=== PATIENT | female | born 1945 | race Caucasian/White ===

== ENCOUNTER 2024-08-02 16:43 | Inpatient (IN) | payer MEDICARE ==
[~2024-08-02] VITALS: Ht 157.5 cm; Wt 66.2 kg
[2024-08-02] MEDS ORDERED: MAGNESIUM HYDROXIDE 30 ML UDC PO PRN (17:30)
[2024-08-02] MEDS ORDERED: TEMAZEPAM 7.5 MG CAPSULE PO PRN ×2 (17:30)
[2024-08-02] MEDS ORDERED: ACETAMINOPHEN 325 MG TABLET PO PRN (17:30)
[2024-08-02] MEDS ORDERED: clonazePAM 0.5 MG TABLET PO PRN (17:30)
[2024-08-02] MEDS ORDERED: MAG HYDROX/AL HYDROX/SIMETH 30 ML UDC PO PRN (17:30)
[2024-08-02] MEDS ORDERED: DEXTROSE 50%-WATER 50 ML DISP.SYRIN IV PRN (18:00)
[2024-08-02 18:01] VITALS: BP 145/83; TEMP 99.1; O2SAT 98
[2024-08-02] MEDS: BLOOD SUGAR DIAGNOSTIC 1 EACH STRIP IN ONE (18:11)
[2024-08-02] MEDS: BLOOD SUGAR DIAGNOSTIC 1 EACH STRIP IN SCH (18:12)
[2024-08-02] MEDS: INSULIN REGULAR, HUMAN 100 UNIT/ML 3 ML VIAL SQ PRN (18:18)
[2024-08-02 20:00] VITALS: BP 128/60; TEMP 98.5; O2SAT 98
[2024-08-02] MEDS: INSULIN GLARGINE, 100 UNIT/ML CARTRIDGE SQ SCH (22:00)
[2024-08-03] MEDS: risperiDONE 0.25 MG TABLET PO SCH (09:00)
[2024-08-06] MEDS: diphenhydrAMINE HCL 50 MG/ML VIAL IM ONE (17:28)
[2024-08-06] MEDS: OLANZAPINE 10 MG VIAL IM ONE (17:29)
[2024-08-07] MEDS: OLANZAPINE 10 MG VIAL IM SCH (16:48)
[2024-08-09] MEDS ORDERED: OLANZAPINE 10 MG VIAL IM PRN (07:30)
[2024-08-11] MEDS: risperiDONE 1 MG TABLET PO SCH (21:14)
[2024-08-13] MEDS: clonazePAM 0.5 MG TABLET PO PRN (12:51)
[2024-08-13] MEDS: risperiDONE 1 MG TABLET PO SCH (21:12)
[2024-08-15] MEDS: risperiDONE 1 MG TABLET PO SCH (21:04)
== END 2024-08-22 14:00 | disposition home or self-care (01) | DRG 885 ==
LOC: GPS 16:43
PROVIDERS: ADMIT Psychiatry & Neurology Psychiatry; ATTEND Nurse Practitioner Family
PROC: 0HBRXZZ Excision of Toe Nail, External Approach (ICD-10-PCS; principal; 2024-08-07)
DX: F29 Unspecified psychosis not due to a substance or known physiological condition (principal); E11.65 Type 2 diabetes mellitus with hyperglycemia; E11.40 Type 2 diabetes mellitus with diabetic neuropathy, unspecified; Z91.199 Patient's noncompliance with other medical treatment and regimen due to unspecified reason; B35.1 Tinea unguium; L60.3 Nail dystrophy; Z79.4 Long term (current) use of insulin; F20.9 Schizophrenia, unspecified; G31.84 Mild cognitive impairment of uncertain or unknown etiology; Z79.899 Other long term (current) drug therapy; Z91.128 Patient's intentional underdosing of medication regimen for other reason; I10 Essential (primary) hypertension; R45.1 Restlessness and agitation
CPT/HCPCS: 82962-TC; 87081-TC; 97116-TC; 97530-TC; J1200; J1815; J3490